=== PATIENT | male | born 1985 | race Asian ===

== ENCOUNTER 2024-09-25 23:59 | Emergency (ER) | payer OTHER | END 2024-09-26 01:10 | disposition home or self-care (01) | LOC: CSHERS 23:59 | DX: S93.402A Sprain of unspecified ligament of left ankle, initial encounter (principal); F17.290 Nicotine dependence, other tobacco product, uncomplicated; X50.1XXA Overexertion from prolonged static or awkward postures, initial encounter; Y93.89 Activity, other specified | CPT/HCPCS: 99283 ==